=== PATIENT | male | born 1980 | race Native Hawaiian/Other Pacific Islander ===

== ENCOUNTER 2021-04-19 13:30 | Outpatient (CLI) | payer OTHER ==
[2021-04-19 14:08] LABS: PLATELET COUNT 260 K/uL (142-355)
[2021-04-19 14:14] LABS: POTASSIUM 4.3 mmol/L (3.6-5.2)
== END 2021-04-19 22:36 | disposition home or self-care (01) ==
LOC: LAB 13:30
PROVIDERS: ATTEND Nurse Practitioner
DX: Z13.1 Encounter for screening for diabetes mellitus (principal); I10 Essential (primary) hypertension; Z13.21 Encounter for screening for nutritional disorder; Z13.220 Encounter for screening for lipoid disorders; R53.83 Other fatigue; R53.81 Other malaise; M54.16 Radiculopathy, lumbar region; Z13.0 Encounter for screening for diseases of the blood and blood-forming organs and certain disorders involving the immune mechanism
CPT/HCPCS: 36415; 80053; 80061; 82306; 82607; 82746; 83036; 84403; 84443; 85027

== ENCOUNTER 2021-04-22 16:37 | Outpatient (CLI) | payer OTHER | END 2021-04-22 21:33 | disposition home or self-care (01) | LOC: RAD 16:37 | PROVIDERS: ATTEND Nurse Practitioner | DX: M54.41 Lumbago with sciatica, right side (principal) ==

== ENCOUNTER 2021-06-14 15:00 | Outpatient (CLI) | payer OTHER | END 2021-06-14 20:18 | disposition home or self-care (01) | LOC: LAB 15:00 | PROVIDERS: ATTEND Nurse Practitioner Family | DX: R53.83 Other fatigue (principal); R53.81 Other malaise; R68.82 Decreased libido | CPT/HCPCS: 82670; 84402; 84403 ==